=== PATIENT | male | born 1950 | race Caucasian/White ===

== ENCOUNTER 2025-01-22 20:04 | Emergency (ER) | payer MEDICARE, OTHER ==
[2025-01-22] MEDS ORDERED: Sulfameth/Trimethoprim DS 800-160mg TAB ONE (20:40)
[2025-01-22] MEDS ORDERED: Acetaminophen 325 MG TAB ONE (20:40)
[2025-01-22] MEDS ORDERED: Boostrix 0.5 ML (Tdap) VIAL (>/=7 yrs of age) ONE (20:40)
[2025-01-22] MEDS ORDERED: Cephalexin 500 MG CAP ONE (20:40)
== END 2025-01-22 21:04 | disposition home or self-care (01) ==
LOC: NAV ERS 20:04
DX: S60.416A Abrasion of right little finger, initial encounter (principal); L03.011 Cellulitis of right finger; F17.210 Nicotine dependence, cigarettes, uncomplicated; Z23 Encounter for immunization; X58.XXXA Exposure to other specified factors, initial encounter
CPT/HCPCS: 90471; 90715